=== PATIENT | female | born 1980 | race Caucasian/White ===

== ENCOUNTER 2018-04-05 14:55 | Emergency (ER) | payer MEDICAID ==
[2018-04-05] MEDS ORDERED: ASPIRIN 81 MG CHEWABLE TAB ONE (15:24)
--- NOTE | 2018-04-05 15:24 | CPEKG ---
Heart Rate: 79 RR Interval: 759 P-R Interval: 184 QRSD Interval: 104 QT Interval: 388 QTC Interval: 445 P [place]: 50 QRS [place]: -28 T Wave [place]: 39 EKG Severity - OTHERWISE NORMAL ECG - EKG Impression: SINUS RHYTHM EKG Impression: BORDERLINE LEFT AXIS DEVIATION Electronically Signed By: Baldo Hardwick 08-Apr-2018 05:55:00
[2018-04-05] MEDS ORDERED: ASPIRIN 81 MG CHEWABLE TAB PO ONE (15:28)
--- NOTE | 2018-04-05 15:31 | EDPHY ---
H & P Stated Complaint: chest pain and chest pressurefor 1 hour Time Seen by Provider: 04/05/18 15:07 HPI/ROS: CHIEF COMPLAINT: Chest pain HISTORY OF PRESENT ILLNESS: 37-year-old female with history of hypertension and family history of early coronary artery disease presents with reports of chest discomfort which developed abruptly this afternoon while she was at work. Patient describes an area just to the left of the sternum near her left breasts approximately 10 cm in diameter of a pressure-like feeling. No associated shortness of breath. No associated nausea or vomiting. No radiation of the pain. Does report the discomfort was worse with walking. The discomfort lasted approximately 20 min. Rated 5/10 at its worst. Currently she is pain free. Patient reports 2 prior episodes of similar chest discomfort 1 in 2011 and 1 in 2013. She was told at 1 point that it was costochondritis and another time told that it was indigestion. Patient reports that she is under significant stress and does have high blood pressure which has not been controlled well recently. She is concerned regarding today's episode of chest discomfort. She does have a history of anxiety which she reports causes symptoms of feeling impending doom. She denies having anxiety which resulted in palpitations, tachycardia, sweating, chest pain, or hyperventilation. She reports otherwise feeling well. No diagnosis of indigestion or GERD. Denies any fevers or chills. Denies palpitations. No urinary complaints. REVIEW OF SYSTEMS: Aside from elements discussed in the HPI, a comprehensive 10-point review of systems was reviewed and is negative. PAST MEDICAL HISTORY: Hypertension. Anxiety. SOCIAL HISTORY: Nonsmoker. Denies illicit drug use. VITAL SIGNS: see nurse's notes. GENERAL: Well-developed, well-nourished, slightly overweight in no discomfort. Patient rates the discomfort as 0 /10. HEENT: Atraumatic. Eyes: No injection or icterus. Oropharynx: No erythema , no injection, no swelling. Neck: No JVD, no bruits, supple with no adenopathy. CHEST: No reproducible pain. Nontender. LUNGS: Clear to auscultation bilaterally, no wheezes, rhonchi or rales. CARDIAC: Regular rate and rhythm, no murmurs, no rubs, no gallops. ABDOMEN: Soft, nontender, nondistended, bowel sounds normal. BACK: No CVA tenderness. EXTREMITIES: No trauma. No clubbing, cyanosis or edema. Range of motion is normal throughout. NEURO: Alert and oriented , grossly nonfocal. SKIN: No diaphoresis, warm and dry, no rash. - Personal History LMP (Females 10-55): 8-14 Days Ago Current Tetanus Diphtheria and Acellular Pertussis (TDAP): Yes Tetanus Vaccine Date: 2013 - Medical/Surgical History Hx Asthma: Yes Hx Chronic Respiratory Disease: No Hx Diabetes: No Hx Cardiac Disease: No Hx Renal Disease: No Hx Cirrhosis: No Hx Alcoholism: No Hx HIV/AIDS: No Hx Splenectomy or Spleen Trauma: No Other PMH: med hx-anxiety and depression,epilepsy,BIPOLAR,asthma. surg-none - Social History Smoking Status: Never smoked Constitutional: Initial Vital Signs Heart Rate 83 04/05/18 15:06 Respiratory Rate 16 04/05/18 15:06 Blood Pressure 138/96 H 04/05/18 15:06 O2 Sat (%) 94 04/05/18 15:06 O2 Delivery Mode Room Air O2 (L/minute) 36.5 Allergies/Adverse Reactions: No Known Allergies Allergy (Verified 07/20/15 12:43) Home Medications: Medication Instructions Recorded Levothyroxine 08/06/13 [place] Carbonate 08/06/13 Vimpat 50 mg (RX) 08/06/13 Zyprexa 08/06/13 risperiDONE [Risperdal] 6 01/10/14 LORazepam [Ativan (RX)] 3 mg PO 06/16/14 Oxcarbazepine [Trileptal] 06/16/14 Medical Decision Making - Diagnostics EKG Interpretation: 12-LEAD EKG: Please see the full report in [facility]. My interpretation: Sinus rhythm, no ST changes or T-wave elevations. Imaging Results: Imaging Impressions Chest X-Ray 04/05/18 15:13 Impression: 1. Minimal airways disease and bibasilar atelectasis. 2. Otherwise negative. Imaging: I viewed and interpreted images myself ED Course/Re-evaluation: 37-year-old female with chest pressure which is been present for approximately 20 min. She does have cardiac risk factors including hypertension and family history. Evaluation includes EKG with no ischemic changes, negative troponin, chest x- ray which demonstrates up possible airways disease, and normal electrolytes. I discussed the heart score with the patient. She has a heart score of 2. History: 1 EK Age: 2 Risk factors: 1 Troponin: 0 We discussed admission verses 2nd troponin the emergency department and close follow-up. Patient feels comfortable being discharged to follow up provided her 4 hr troponin remains negative. Troponin was obtained at 1700, 4 hr after the patient's presentation to the emergency department. It is normal. Patient was discharged with her sister. She understands importance of close follow-up. She understands reasons to return to the emergency department including recurrent pain, palpitations, lightheadedness, dizziness, nausea and vomiting. Differential Diagnosis: After history and physical examination, the differential for chest pain was considered, including but not limited to, myocardial ischemia, acute coronary syndrome, pulmonary embolus, chest wall pain, pleural inflammation and pulmonary infectious causes. - Data Points Laboratory Results: Laboratory Results 04/05/18 15:55 04/05/18 04/05/18 04/05/18 19:12 16:57 16:45 WBC RBC Hgb Hct MCV MCH MCHC RDW Plt Count MPV Neut % (Auto) Lymph % (Auto) [place] % (Auto) Eos % (Auto) Baso % (Auto) Nucleat RBC Rel Count Absolute Neuts (auto) Absolute Lymphs (auto) Absolute Monos (auto) Absolute Eos (auto) Absolute Basos (auto) Absolute Nucleated RBC Immature Gran % Immature Gran # D-Dimer POC Sodium 137 mEq/L mEq/L (135-145) POC Potassium 4.0 mEq/L mEq/L (3.3-5.0) POC Chloride 100.0 mEq/L mEq/L (97-110) POC Total CO2 22 mEq/L mEq/L (22-31) POC BUN 7 mg/dL mg/dL (7-23) POC Creatinine 0.8 mg/dL mg/dL (0.6-1.0) POC Glucose 81 mg/dL mg/dL (70-100) POC Calcium 9.7 mg/dL mg/dL (8.5-10.4) POC Troponin I 0.00 ng/mL ng/mL 0.00 ng/mL ng/mL (0.00-0.08) (0.00-0.08) 04/05/18 04/05/18 15:55 15:55 WBC 6.80 10^3/uL 10^3/uL (3.80-9.50) RBC 4.72 10^6/uL 10^6/uL (4.18-5.33) Hgb 13.4 g/dL g/dL (12.6-16.3) Hct 40.0 % % (38.0-47.0) MCV 84.7 fL fL (81.5-99.8) MCH 28.4 pg pg (27.9-34.1) MCHC 33.5 g/dL g/dL (32.4-36.7) RDW 13.4 % % (11.5-15.2) Plt Count 277 10^3/uL 10^3/uL (150-400) MPV 10.3 fL fL (8.7-11.7) Neut % (Auto) 76.0 % H % (39.3-74.2) Lymph % (Auto) 18.7 % % (15.0-45.0) [place] % (Auto) 3.7 % L % (4.5-13.0) Eos % (Auto) 0.6 % % (0.6-7.6) Baso % (Auto) 0.7 % % (0.3-1.7) Nucleat RBC Rel Count 0.0 % % (0.0-0.2) Absolute Neuts (auto) 5.17 10^3/uL 10^3/uL (1.70-6.50) Absolute Lymphs (auto) 1.27 10^3/uL 10^3/uL (1.00-3.00) Absolute Monos (auto) 0.25 10^3/uL L 10^3/uL (0.30-0.80) Absolute Eos (auto) 0.04 10^3/uL 10^3/uL (0.03-0.40) Absolute Basos (auto) 0.05 10^3/uL 10^3/uL (0.02-0.10) Absolute Nucleated RBC 0.00 10^3/uL 10^3/uL (0-0.01) Immature Gran % 0.3 % % (0.0-1.1) Immature Gran # 0.02 10^3/uL 10^3/uL (0.00-0.10) D-Dimer < 0.27 ug/mLFEU ug/mLFEU (0.00-0.50) POC Sodium POC Potassium POC Chloride POC Total CO2 POC BUN POC Creatinine POC Glucose POC Calcium POC Troponin I Medications Given: Discontinued Medications Aspirin (Aspirin) 324 mg PO EDNOW ONE Stop: 04/05/18 15:29 Last Admin: 04/05/18 17:01 Dose: 324 mg Point of Care Test Results: Chemistry 04/05/18 04/05/18 04/05/18 19:12 16:57 16:45 POC Sodium 137 mEq/L mEq/L (135-145) POC Potassium 4.0 mEq/L mEq/L (3.3-5.0) POC Chloride 100.0 mEq/L mEq/L (97-110) POC Total CO2 22 mEq/L mEq/L (22-31) POC BUN 7 mg/dL mg/dL (7-23) POC Creatinine 0.8 mg/dL mg/dL (0.6-1.0) POC Glucose 81 mg/dL mg/dL (70-100) POC Calcium 9.7 mg/dL mg/dL (8.5-10.4) POC Troponin I 0.00 ng/mL ng/mL 0.00 ng/mL ng/mL (0.00-0.08) (0.00-0.08) Departure - Departure Disposition: Home, Routine, Self-Care Clinical Impression: Chest pain Qualifiers: Chest pain type: unspecified Qualified Code(s): R07.9 - Chest pain, unspecified Condition: Good Instructions: Chest Pain (ED) Additional Instructions: Please follow up with Cardiology on Sunday for urgent risk stratification. Return to the emergency department if you have recurrent discomfort, lightheadedness, dizziness, palpitations, fainting, vomiting, or other concerns. Please be sure that the sanipractic physician know that this is an emergency department referral, that you had been seen in the emergency department and had 2 troponins checked, and that based on your heart score, you should have a stress test as an outpatient. Referrals: Evette Trujillo MD [Primary Care Provider] - As per Instructions Nolvia Hendricks MD [Medical Doctor] - As per Instructions
[2018-04-05 18:47] LABS: PLATELET COUNT 277 10^3/uL (150-400)
[2018-04-05 19:32] VITALS: BP 138/94
== END 2018-04-05 19:37 | disposition home or self-care (01) ==
LOC: CED 14:55
DX: R07.9 Chest pain, unspecified (principal); I10 Essential (primary) hypertension; J45.909 Unspecified asthma, uncomplicated
CPT/HCPCS: 71046-PO; 80048-PO; 84484-PO